=== PATIENT | male | born 1985 | race Caucasian/White ===

== ENCOUNTER 2017-08-20 11:21 | Emergency (ER) | payer OTHER ==
[~2017-08-20] VITALS: Ht 172.7 cm; Wt 75.0 kg
[2017-08-20 11:29] VITALS: Ht 172.7 cm; Wt 75.0 kg
[2017-08-20] MEDS ORDERED: ONDANSETRON 4 MG INJ IV STA ×2 (11:41→13:27)
[2017-08-20] MEDS ORDERED: HYDROmorphONE 1 MG/ML SYG IV STA ×3 (11:41→17:14)
[2017-08-20 12:31] LABS: BASOPHILS % 0.1 % (0.0-2.0); EOSINOPHILS # 0.1 10^3/ul (0.0-0.5); EOSINOPHILS % 0.8 % (0.0-7.0); HEMOGLOBIN 12.8 g/dl (14.0-18.0); LYMPHOCYTES # 1.4 10^3/ul (0.8-2.9); LYMPHOCYTES % 9.8 % (15.0-51.0); MEAN CORPUSCULAR HEMOGLOBIN 29.8 pg (29.0-33.0); MEAN CORPUSCULAR HGB CONC 34.6 g/dl (32.0-37.0); MEAN CORPUSCULAR VOLUME 86.2 fl (82.0-101.0); MEAN PLATELET VOLUME 11.3 fl (7.4-10.4); MONOCYTE # 1.4 10^3/ul (0.3-0.9); NEUTROPHIL # 11.1 10^3/ul (1.6-7.5); NEUTROPHILS % 78.9 % (39.0-77.0); PLATELET COUNT 194 10^3/UL (140-415); RED BLOOD COUNT 4.29 10^6/ul (4.70-6.10); RED CELL DISTRIBUTION WIDTH 12.9 % (11.5-14.5); WHITE BLOOD COUNT 14.1 10^3/ul (4.8-10.8)
[2017-08-20 12:55] LABS: ALBUMIN 4.4 g/dl (3.3-4.9); ALBUMIN/GLOBULIN RATIO 1.29; BILIRUBIN,INDIRECT 0.5 mg/dl (0-1.1); BILIRUBIN,TOTAL 0.5 mg/dl (0.2-1.3); CALCIUM 9.3 mg/dl (8.4-10.2); CREATININE 0.98 mg/dl (0.61-1.24); POTASSIUM 3.5 mmol/L (3.5-5.1); TOTAL PROTEIN 7.8 g/dl (6.1-8.1)
--- NOTE | 2017-08-20 13:21 | ERA ---
ER Documentation Chief Complaint Date/Time DATE: 08/20/17 TIME: 13:18 Chief Complaint BIBA FOR BACK PAIN,LEFT LEG NUMBNESS.S/P SPINAL STIMULATOR PLACEMENT HPI This is a 32-year-old male who is here for back pain and weakness. The patient states that he had a on-the-job injury with a crush injury to his foot and he developed chronic regional pain syndrome. The patient had a spinal stimulator placed July 20, 2017 that failed. He had a repeat procedure done at the end of July. Patient states that he was doing much better and having much less pain is able to walk and function. He states that over the weekend he woke up on Saturday morning having some discomfort in his legs feel weak all over and was unable to really ambulate due to pain. He said that his symptoms are getting worse. States that he saw his pain doctor today and was sent here. He said a spinal stimulator was evaluated by the company today at 's office and the device is working properly with proper lead back. He says that moving his arms any external rotation will cause pain in his back. He says the entire spine feels sore. He says he has a lot of pain located on the spinal stimulator placement in his lumbar spine with the stimulator to the right of the lumbar spine. He says his legs feel burning and painful. He says he has limited range of motion of his legs that is new over the weekend. Denies any headache fever rash chest pain abdominal pain GI symptoms ROS All systems reviewed and are negative except as per history of present illness. Medications Home Meds No Active Prescriptions or Reported Meds Allergies Allergies: Coded Allergies: Sulfa (Sulfonamide Antibiotics) (Verified Allergy, Severe, 08/20/17) PMhx/Soc Medical and Surgical Hx: pt denies Medical Hx, pt denies Surgical Hx Hx Alcohol Use: No Hx Substance Use: No Hx Tobacco Use: No Smoking Status: Never smoker FmHx Family History: No coronary disease Physical Exam Vitals Vital Signs Date Time Temp Pulse Resp B/P Pulse Ox O2 Delivery O2 Flow Rate FiO2 08/20/17 13:44 79 14 136/86 96 Room Air 08/20/17 11:29 97.7 72 20 131/73 98 Physical Exam Const: Well-developed, well-nourished Head: Atraumatic, normocephalic Eyes: Normal Conjunctiva, PERRLA, EOMI, normal sclera, no nystagmus ENT: Normal External Ears, Nose and Mouth, moist mucus membranes. Neck: Full range of motion. No meningismus, no lymphadenopathy. Resp: Clear to auscultation bilaterally, no wheezing, rhonchi, rales Cardio: Regular rate and rhythm, no murmurs, S1 S2 present Abd: Soft, non tender x 4, non distended. Normal bowel sounds, no guarding or rebound, no pulsitile abdominal masses or bruits Skin: No petechiae or rashes, no ecchymosis , no maculopapular rash Back: Tenderness all around the spinal stimulator placement there is no erythema to the skin his incisions are healed with slight scabbing. There is tenderness to the right of the lumbar spine where the stimulator is well which is tender.] Ext: No cyanosis, or edema, FROM x 4, normal inspection, neurovascularly intact x 4 is limited range of motion of both legs due to pain in the low back. His upper extremities can move but when he externally rotates his arm he has pain in his back. Says his arms feel sore as well. Neur: Awake and alert, STR 5/5 x 4, sensation intact x 4, no focal findings, cerebellum intact Psych: Normal Mood and Affect Result Diagram: 08/20/17 1200 08/20/17 1200 Results 24 hrs Laboratory Tests Test 08/20/17 12:00 White Blood Count 14.110^3/ul Red Blood Count 4.2910^6/ul Hemoglobin 12.8g/dl Hematocrit 37.0% Mean Corpuscular Volume 86.2fl Mean Corpuscular Hemoglobin 29.8pg Mean Corpuscular Hemoglobin Concent 34.6g/dl Red Cell Distribution Width 12.9% Platelet Count 00885^3/UL Mean Platelet Volume 11.3fl Neutrophils % 78.9% Lymphocytes % 9.8% Monocytes % 10.0% Eosinophils % 0.8% Basophils % 0.1% Nucleated Red Blood Cells % 0.0/100WBC Neutrophils # 11.110^3/ul Lymphocytes # 1.410^3/ul Monocytes # 1.410^3/ul Eosinophils # 0.110^3/ul Basophils # 0.010^3/ul Nucleated Red Blood Cells # 0.010^3/ul Sodium Level 138mmol/L Potassium Level 3.5mmol/L Chloride Level 104mmol/L Carbon Dioxide Level 23mmol/L Anion Gap 15 Blood Urea Nitrogen 12mg/dl Creatinine 0.98mg/dl Glucose Level 96mg/dl Calcium Level 9.3mg/dl Total Bilirubin 0.5mg/dl Direct Bilirubin 0.00mg/dl Indirect Bilirubin 0.5mg/dl Aspartate Amino Transf (AST/SGOT) 33IU/L Alanine Aminotransferase (ALT/SGPT) 57IU/L Alkaline Phosphatase 111IU/L Total Protein 7.8g/dl Albumin 4.4g/dl Globulin 3.40g/dl Albumin/Globulin Ratio 1.29 Current Medications Medications (Trade) Dose Ordered Sig/Derrick Route PRN Reason Start Time Stop Time Status Last Admin Dose Admin Hydromorphone HCl (Dilaudid) 1 mg ONCE STAT IV 08/20/17 11:41 08/20/17 11:46 DC 08/20/17 11:59 Ondansetron HCl (Zofran Inj) 4 mg ONCE STAT IV 08/20/17 11:41 08/20/17 11:46 DC 08/20/17 11:59 Hydromorphone HCl (Dilaudid) 1 mg ONCE STAT IV 08/20/17 13:27 08/20/17 13:28 DC 08/20/17 13:37 Ondansetron HCl 4 mg 4 mg ONCE STAT IV 08/20/17 13:27 08/20/17 13:28 DC 08/20/17 13:38 Cefepime HCl 50 ml @ 100 mls/hr ONCE STAT IVPB 08/20/17 13:48 08/20/17 14:17 Vancomycin HCl (Vancocin) 250 ml @ 125 mls/hr ONCE ONCE IVPB 08/20/17 14:00 08/20/17 15:59 Procedures/MDM PROCEDURE: CT lumbar spine without contrast CLINICAL INDICATION: Low back pain. Has a spinal stimulator. TECHNIQUE: CT scan of the lumbar spine was performed. No IV contrast was administered. Coronal and sagittal reformatted images were obtained from the axial source images. Use of iterative reconstruction technique was employed. Images were reviewed on a high-resolution PACS workstation. The calculated radiation dose measures 759.96 mGy centimeters. The CTDI measures 20.68 mGy. One or more of the following dose reduction techniques were used: - Automated exposure control. - Adjustment of the mA and/or kV according to patient size . - Use of iterative reconstruction technique. Images were reviewed on a high-resolution PACS workstation COMPARISON: None. FINDINGS: There is no acute osseous abnormality or evidence of fracture. The vertebral body heights are maintained. No evidence for a sacral insufficiency fracture. There is presence of a dual lead spinal stimulator with the posterior epidural leads entering through the L1-L2 interlaminar space. The tips are seen ending at the top of the T9 vertebral body level and demonstrate grossly normal appearance. T12-L1:The disk height is preserved. There is no spinal stenosis. The facet joints are maintained. L1-L2: There is mild posterior disc space narrowing and Schmorl's node formation. There is no osseous spinal stenosis. The facet joints are maintained. L2-L3:The disk height is preserved. There is no spinal stenosis. The facet joints are maintained. L3-L4: Small generalized disc bulge is present without osseous spinal stenosis. The facet joints are maintained. L4-L5: Small generalized disc bulge is present without central canal stenosis. Very mild bilateral facet arthrosis. Mild bilateral neural foraminal stenosis. L5-S1:The disk height is preserved. There is no spinal stenosis. The facet joints are maintained. IMPRESSION: 1. No acute vertebral body fractures. 2. Mild degenerative disc disease at the lumbar spine noting mild disc space narrowing at L1-L2. 3. No evidence for osseous central canal stenosis. 4. Mild disc bulging seen at L3-L4 and L4-L5. 5. Mild bilateral neural foraminal stenosis at L4-5. 6. Dual lead posteriorly dural spinal stimulator, with adequate CT appearance. RPTAT: HH. .Daren Artis MD, MD Date Time Electronically viewed and signed by .Daren Artis MD, MD on 08/20/2017 13:27 .d/ CC: NICHOLAS VELEZ DO Patient's CAT scan does not show any evidence of epidural abscess or acute inflammatory process. Patient's white blood count slightly elevated may be due to infection or stress response. Spoke with the patient's Dr., who has graciously arranged for transfer to [facility] is Dr. Tam Gonzalez as accepting physician They will have the spinal stimulator looked at by neurosurgeon. Blood cultures have been drawn here 2, he has been given IV vancomycin and IV cefepime Departure Diagnosis: Primary Impression: Generalized weakness Additional Impressions: Back pain Qualified Code: M54.5 - Acute right-sided low back pain without sciatica Status post insertion of spinal cord stimulator Condition: Stable NICHOLAS VELEZ DO Aug 20, 2017 13:21
--- NOTE | 2017-08-20 13:27 | RADRPT ---
PROCEDURE: CT lumbar spine without contrast CLINICAL INDICATION: Low back pain. Has a spinal stimulator. TECHNIQUE: CT scan of the lumbar spine was performed. No IV contrast was administered. Coronal a nd sagittal reformatted images were obtained from the axial source images. Use of iterative reconstr uction technique was employed. Images were reviewed on a high-resolution PACS workstation. The ramone culated radiation dose measures 759.96 mGy centimeters. The CTDI measures 20.68 mGy. One or more of the following dose reduction techniques were used: - Automated exposure control. - Adjustment of the mA and/or kV according to patient size . - Use of iterative reconstruction technique. Images were reviewed on a high-resolution PACS workstation COMPARISON: None. FINDINGS: There is no acute osseous abnormality or evidence of fracture. The vertebral body heights are mainta ined. No evidence for a sacral insufficiency fracture. There is presence of a dual lead spinal stimulator with the posterior epidural leads entering throug h the L1-L2 interlaminar space. The tips are seen ending at the top of the T9 vertebral body level a nd demonstrate grossly normal appearance. T12-L1:The disk height is preserved. There is no spinal stenosis. The facet joints are maintained. L1-L2: There is mild posterior disc space narrowing and Schmorl's node formation. There is no osseou s spinal stenosis. The facet joints are maintained. L2-L3:The disk height is preserved. There is no spinal stenosis. The facet joints are maintained. L3-L4: Small generalized disc bulge is present without osseous spinal stenosis. The facet joints are maintained. L4-L5: Small generalized disc bulge is present without central canal stenosis. Very mild bilateral f acet arthrosis. Mild bilateral neural foraminal stenosis. L5-S1:The disk height is preserved. There is no spinal stenosis. The facet joints are maintained. IMPRESSION: 1. No acute vertebral body fractures. 2. Mild degenerative disc disease at the lumbar spine noting mild disc space narrowing at L1-L2. 3. No evidence for osseous central canal stenosis. 4. Mild disc bulging seen at L3-L4 and L4-L5. 5. Mild bilateral neural foraminal stenosis at L4-5. 6. Dual lead posteriorly dural spinal stimulator, with adequate CT appearance. RPTAT: HH. .Daren Artis MD, MD Date Time Electronically viewed and signed by .Daren Artis MD, MD on 08/20/2017 13:27 .d/
[2017-08-20] MEDS ORDERED: CEFEPIME 2GM/50 ML (PMX) 50 ML IVPB STA (13:48)
[2017-08-20] MEDS ORDERED: VANCOMYCIN 1 GM (PMX) 250 ML IVPB ONE (14:00)
[2017-08-20 18:45] VITALS: BP 118/75; PULSE 84; RESP 18; TEMP 99.1
== END 2017-08-20 19:07 | disposition short-term general hospital (02) ==
LOC: E/R 11:21
DX: R53.1 Weakness (principal); R40.2252 Coma scale, best verbal response, oriented, at arrival to emergency department; R40.2142 Coma scale, eyes open, spontaneous, at arrival to emergency department; R40.2362 Coma scale, best motor response, obeys commands, at arrival to emergency department; Z96.9 Presence of functional implant, unspecified
CPT/HCPCS: 36415; 72131; 80053; 85025; 87040; 96365; 96375; 96376; 99285; J0692; J1170; J2405; J3370